=== PATIENT | female | born 1975 | race African-American/Black ===

== ENCOUNTER 2022-10-29 02:26 | Emergency (ER) | payer MEDICAID, OTHER ==
[~2022-10-29] VITALS: Ht 157.5 cm; Wt 90.5 kg
[~2022-10-29 02:26] MED LIST: AMOX5SUS30; IBUP600T39
[2022-10-29 06:42] VITALS: BP 147/93; PULSE 99; RESP 16; TEMP 97.5; O2SAT 95
[2022-10-29] MEDS ORDERED: KETOROLAC TROMETH 60MG/2ML VIAL IM ONE (07:00)
[2022-10-29] MEDS ORDERED: TRAM50TA2 PO (07:11)
== END 2022-10-29 07:18 | disposition home or self-care (01) ==
LOC: ER 02:26
DX: S46.002A Unspecified injury of muscle(s) and tendon(s) of the rotator cuff of left shoulder, initial encounter (principal); V43.52XA Car driver injured in collision with other type car in traffic accident, initial encounter; Y93.89 Activity, other specified; Y92.488 Other paved roadways as the place of occurrence of the external cause; Y99.8 Other external cause status
CPT/HCPCS: 73030; 96372; 99283; J1885

== ENCOUNTER → 2024-03-29 | Day surgery (SDC) | payer MEDICAID ==
[2024-03-27 14:04] LABS: Basophils # (auto) 0.2 10 ^3/uL (0-0.2); Basophils % (auto) 1.7 % (0.0-2.0); Eosinophils # (auto) 0.1 10 ^3/uL (0-0.8); Eosinophils % (auto) 0.7 % (0.0-7.0); Hematocrit 37.8 % (36.0-46.0); Hemoglobin 12.4 g/dL (12.2-16.2); Lymphocytes # (auto) 3.5 10 ^3/uL (0.4-5.4); Lymphocytes % (auto) 30.7 % (10.0-50.0); Mean Corpuscular Hgb Conc. 32.8 g/dL (32.0-36.0); Mean Corpuscular Volume 82.3 fL (80.0-100.0); Monocytes # (auto) 0.6 10 ^3/uL (0-1.3); Monocytes % (auto) 5.4 % (0.0-12.0); Neutrophils % (auto) 61.5 % (37.0-80.0); Nucleated Red Blood Cells % 0.1 %; Platelet Count (auto) 389 10^3/uL (140-450); Red Cell Distribution Width 14.1 % (11.8-14.3); White Blood Cell 11.3 10^3/uL (4.4-10.8)
[2024-03-27 14:06] LABS: Urine Bacteria FEW /hpf (None Seen); Urine Blood Negative /uL (Negative); Urine Clarity Clear (Clear); Urine Color Light-Yellow (Yellow); Urine Mucus FEW (None Seen); Urine Protein, UAD Negative (Negative); Urine Specific Gravity 1.024 (1.001-1.035); Urine Squamous Epithelial Cell FEW /hpf (<5); Urine Urobilinogen Normal (Negative); Urine WBC 2 /HPF (0-5)
[2024-03-27 14:19] LABS: INR 0.92 (0.9-1.15); Partial Thromboplastin Time 28.2 SEC (24.5-34.5); Prothrombin Time 9.8 sec (9.3-11.8)
[2024-03-27 15:15] LABS: Alanine Aminotransferase 11 U/L (7-40); Albumin 4.3 g/dL (3.2-4.8); Alkaline Phosphatase 66 U/L (46-116); Anion Gap 9 (5-15); Blood Urea Nitrogen 10 mg/dL (9-23); Calcium 9.6 mg/dL (8.7-10.4); Carbon Dioxide 27 mmol/L (20-31); Glucose 81 mg/dL (74-106); Total Protein 6.9 g/dL (5.7-8.2)
[2024-03-27 15:25] LABS: Aspartate Aminotransferase < 8 U/L (13-40); Bilirubin, Total 0.2 mg/dL (0.2-1.0); Chloride 105 mmol/L (98-107); Potassium 3.8 mmol/L (3.5-5.1); Sodium 141 mmol/L (136-145)
[~2024-03-29] VITALS: Ht 157.5 cm; Wt 85.7 kg
[~2024-03-29] MED LIST changes: -AMOX5SUS30; +CYCL-837 PO; +HYDROmorphone HCL 2 MG/ML VL/or syr IV PRN; +KETOROLAC TROMETH 30 MG/ML 1ML VIAL IV ONE; +LIDOCAINE 1% INJ PF 5ML AMP ONE; +MEPERIDINE HCL (25 MG/ML) 1ML VIAL ONE; +METOCLOPRAMIDE HCL 5MG/ml INJ 2ml VIAL IV ONE; +MIDAZOLAM HCL 2MG/2ML 2ml VIAL (1mg/ml) ONE; +MORPHINE SULFATE 4 MG/ML SYR/VIAL IV PRN; +MORPHINE SULFATE INJ 2 MG/ml SYRG IV PRN; +PROPOFOL 10 MG/ML 20 ML IV ONE; +SEMA0.5I SC; +SODIUM CHLORIDE LOCK 10 ML ONE; +TRAM50TA2 PO; +fentaNYL CITRATE 100 MCG/2 ML VL ONE
[2024-03-29 13:32] VITALS: PULSE 75; RESP 14; TEMP 97.6; O2SAT 100
[2024-03-29 13:37] VITALS: PULSE 75
--- NOTE | 2024-03-29 13:39 | DVHOP2 ---
Operative Report DATE OF OPERATION: 03/29/24 PROCEDURE: Colonoscopy with cold biopsy polypectomy. PREOPERATIVE INDICATION: The patient is a 48 -year-old female undergoing colonoscopy for colon cancer screening and abdominal pain and change in bowel habits POSTOPERATIVE DIAGNOSES: 1. Two tiny benign-appearing sigmoid polyps were seen and removed by cold biopsy forceps 3. 1+ internal hemorrhoids otherwise normal examination up to the cecum and te rminal ileum PROCEDURE PERFORMED BY: Marisol Oh M.D. SCOPE: Olympus videocolonoscope. ASA CLASS: 2. PREOPERATIVE MEDICATIONS: Dr. Moni Mendoza PROCEDURE IN DETAIL: After obtaining an informed consent, the patient was placed on left lateral decubitus position. She was then sedated with the above medications. A rectal examination was performed that was normal. The colonoscope was then passed through the anus into the rectosigmoid and through the descending, transverse, and ascending colon up to the cecum with visualization of the appendiceal orifice, base of the cecum and the ile ocecal valve. The colonoscope was then withdrawn. No masses were seen. There was no colitis. There was no diverticular disease. There were two tiny diminutive sigmoid polyps that appeared hyperplastic These were removed by cold biopsy forceps . On retroflexion and straight on view the patient had trace to 1+ internal hemorrhoids The patient tolerated the procedure well without difficulty. WITHDRAWAL TIME: 6 minutes QUALITY OF THE PREP: [place] Bowel Prep score: 9. COMPLICATIONS : None SPECIMENS: Sigmoid polyps DISPOSITION: Stable D/C to home PLAN: 1. Repeat colonoscopy base on biopsy result likely in 7-10 years 2. Resume GI soft diet advance as tolerated 3. Increase fluid and fiber intake 4. Local anorectal hemorrhoidal care 5. Outpatient follow up with me in 4-6 weeks to review results and discuss further management MARISOL OH MD Mar 29, 2024 13:39
[2024-03-29 14:02] VITALS: BP 135/89; RESP 13; O2SAT 99
== END | disposition home or self-care (01) ==
LOC: GI 10:29
PROVIDERS: ATTEND Internal Medicine Gastroenterology
DX: R19.4 Change in bowel habit (principal); K64.0 First degree hemorrhoids; K63.5 Polyp of colon; E66.9 Obesity, unspecified; Z68.34 Body mass index [BMI] 34.0-34.9, adult; Z98.891 History of uterine scar from previous surgery; Z98.890 Other specified postprocedural states
CPT/HCPCS: 36415; 45380; 80053; 81001; 84702; 85025; 85610; 85730; J2175; J2250; J2704; J3010